=== PATIENT | male | born 1950 | race Two or more races ===

== ENCOUNTER 2020-10-05 11:15 | Inpatient (IN) | payer OTHER ==
[~2020-10-05] VITALS: Ht 170.2 cm; Wt 88.9 kg
[2020-10-05] MEDS ORDERED: AVALIDE 300-121 EACH PO (14:09)
[2020-10-05] MEDS ORDERED: TUJEO (14:09)
[2020-10-05] MEDS ORDERED: IBERSARTAN PO (14:10)
[2020-10-05] MEDS ORDERED: ZOCOR20 MG PO (14:11)
[2020-10-05] MEDS ORDERED: GLUCOTROL10 MG PO (14:11)
[2020-10-05] MEDS ORDERED: AVODART0.5 MG PO (14:11)
[2020-10-05] MEDS ORDERED: TRAZO PO (14:12)
[2020-10-12] MEDS ORDERED: COLACE100 MG PO (09:13)
[2020-10-12] MEDS ORDERED: DIAZEPAM10 MG PO (09:13)
[2020-10-12] MEDS ORDERED: NEURONTIN300 MG PO (09:13)
[2020-10-12] MEDS ORDERED: PERCOCET 5-3251 EACH PO (09:13)
[2020-10-12] MEDS ORDERED: MEDROLPACK PO (09:13)
[2020-10-12] MEDS ORDERED: AMOX-CLAV 875-1 EAC1 PO (09:13)
[2020-10-12] MEDS ORDERED: DIAZEPAM5 MG PO (09:51)
== END 2020-10-13 12:32 | disposition home or self-care (01) | DRG 455 ==
LOC: SURG 10-12 06:27 → O/R 10-12 06:27 → SURH 10-12 11:15 → SURG 10-12 11:59 → SURH 10-12 14:30 → SURG 10-13 12:32
PROVIDERS: ADMIT Orthopaedic Surgery Orthopaedic Surgery of the Spine; ATTEND Orthopaedic Surgery Orthopaedic Surgery of the Spine
PROC: 0SG00J1 Fusion of Lumbar Vertebral Joint with Synthetic Substitute, Posterior Approach, Posterior Column, Open Approach (ICD-10-PCS; 2020-10-12)
PROC: 07DR3ZZ Extraction of Iliac Bone Marrow, Percutaneous Approach (ICD-10-PCS; 2020-10-12)
PROC: XRGB0F3 Fusion of Lumbar Vertebral Joint using Radiolucent Porous Interbody Fusion Device, Open Approach, New Technology Group 3 (ICD-10-PCS; principal; 2020-10-12 14:30)
DX: M43.16 Spondylolisthesis, lumbar region (principal); M48.062 Spinal stenosis, lumbar region with neurogenic claudication; I10 Essential (primary) hypertension; E11.9 Type 2 diabetes mellitus without complications; Z79.84 Long term (current) use of oral hypoglycemic drugs

== ENCOUNTER 2023-06-09 07:00 | Inpatient (IN) | payer OTHER ==
[~2023-06-09] VITALS: Ht 170.2 cm; Wt 187.8 kg
[~2023-06-09 07:00] MED LIST: AMOX-CLAV 875-1 EAC1 PO; AVALIDE 300-121 EACH PO; AVODART0.5 MG PO; COLACE100 MG PO; DIAZEPAM10 MG PO; DIAZEPAM5 MG PO; GLUCOTROL10 MG PO; IBERSARTAN PO; MEDROLPACK PO; NEURONTIN300 MG PO; PERCOCET 5-3251 EACH PO; TRAZO PO; TUJEO; ZOCOR20 MG PO
[2023-06-09] MEDS ORDERED: METFORMIN (08:32)
[2023-06-09] MEDS ORDERED: [UNRECOGNIZED DRUG - OTHER] (08:33)
[2023-06-15] MEDS ORDERED: PERCOCET 5-3251 EACH PO (07:34)
[2023-06-15] MEDS ORDERED: MEDROLPACK PO (07:35)
[2023-06-15] MEDS ORDERED: COLACE100 MG PO (07:35)
== END 2023-06-16 12:54 | disposition home or self-care (01) | DRG 473 ==
LOC: EDSTATUS 07:00 → O/R 06-15 05:00 → EDSTATUS 06-15 07:00 → CIR.AMB 06-15 07:00 → SURG 06-15 07:00 → SURH 06-15 14:47 → SURG 06-15 15:00 → O/R 06-15 16:50 → SURG 06-15 19:31
PROVIDERS: ADMIT Orthopaedic Surgery Orthopaedic Surgery of the Spine; ATTEND Orthopaedic Surgery Orthopaedic Surgery of the Spine
PROC: 0RT30ZZ Resection of Cervical Vertebral Disc, Open Approach (ICD-10-PCS; 2023-06-15)
PROC: 07DS0ZZ Extraction of Vertebral Bone Marrow, Open Approach (ICD-10-PCS; 2023-06-15)
PROC: 4A11X4G Monitoring of Peripheral Nervous Electrical Activity, Intraoperative, External Approach (ICD-10-PCS; 2023-06-15)
PROC: 0RG20A0 Fusion of 2 or more Cervical Vertebral Joints with Interbody Fusion Device, Anterior Approach, Anterior Column, Open Approach (ICD-10-PCS; principal; 2023-06-15 07:00)
DX: M50.022 Cervical disc disorder at C5-C6 level with myelopathy (principal); M50.023 Cervical disc disorder at C6-C7 level with myelopathy

== ENCOUNTER 2024-06-12 09:30 | Inpatient (IN) | payer OTHER ==
[~2024-06-12] VITALS: Ht 170.2 cm; Wt 80.3 kg
[~2024-06-12 09:30] MED LIST changes: +METFORMIN; +[UNRECOGNIZED DRUG - OTHER]
[2024-06-18] MEDS ORDERED: AMOX-CLAV 875-1 EACH PO (13:00)
[2024-06-18] MEDS ORDERED: PERCOCET 5-3251 EACH PO (13:00)
[2024-06-18] MEDS ORDERED: COLACE100 MG PO (13:01)
[2024-06-18] MEDS ORDERED: ZOFRAN8 MG PO (13:01)
[2024-06-18] MEDS ORDERED: GABAPENTIN100 M2 PO (13:01)
[2024-06-18] MEDS ORDERED: MEDROLPACK PO (13:01)
[2024-06-18] MEDS ORDERED: NEURONTIN800 MG PO (13:02)
[2024-06-18] MEDS ORDERED: VANCOMYCIN HCL 1,000 MG VIAL ONE ×3 (15:04→19:30)
[2024-06-18] MEDS ORDERED: CEFAZOLIN SODIUM 1,000 MG VIAL ONE (15:04)
[2024-06-18] MEDS ORDERED: METHYLPREDNISOLONE SOD SUCC 125 MG VIAL ONE (15:04)
[2024-06-18] MEDS ORDERED: TRANEXAMIC ACID 100MG/1ML (1000MG) AMPUL IV ONE (15:04)
[2024-06-18] MEDS ORDERED: METHYLPREDNISOLONE ACETATE 80 MG/ML VIAL ONE (15:11)
[2024-06-18] MEDS ORDERED: IOVERSOL 320 MG/ML - 50 ML VIAL IV ONE (15:18)
[2024-06-18] MEDS ORDERED: PROMETHAZINE HCL 50 MG/ML AMPUL IM PRN (19:30)
[2024-06-18] MEDS ORDERED: 0.9 % SODIUM CHLORIDE 1,000 ML IV SCH (19:30)
[2024-06-18] MEDS ORDERED: ENALAPRILAT DIHYDRATE 1.25 MG/ML VIAL IV PRN (19:30)
[2024-06-18] MEDS ORDERED: MORPHINE SULFATE 4 MG/ML VIAL IV ONE (19:35)
[2024-06-18] MEDS ORDERED: VANCOMYCIN HCL 1,000 MG VIAL IV SCH (21:00)
[2024-06-18] MEDS ORDERED: MORPHINE SULFATE 4 MG,MORPHINE SULFATE 2 MG IV SCH (21:00)
[2024-06-18] MEDS ORDERED: GABAPENTIN 800 MG TABLET PO SCH (21:00)
[2024-06-18 22:24] VITALS: BP 148/88; O2SAT 97
[2024-06-18] MEDS ORDERED: INSULIN LISPRO 1,000 UNIT/10 ML UNITS SUBCUTANEO PRN (23:15)
[2024-06-18] MEDS ORDERED: DEXTROSE 50 % IN WATER 0.5 G/ML DISP.SYRIN IV PRN (23:15)
[2024-06-19] MEDS ORDERED: SODIUM CHLORIDE 0.45 % 1,000 ML IV SCH
[2024-06-19] MEDS ORDERED: ACETAMINOPHEN 500 MG GEL..CAP PO SCH
[2024-06-19 00:03] VITALS: BP 139/75; O2SAT 100
[2024-06-19] MEDS ORDERED: CEFAZOLIN SODIUM 1,000 MG in 0.9 % SODIUM CHLORIDE 50 ML IV SCH (01:00)
[2024-06-19] MEDS ORDERED: METHYLPREDNISOLONE SOD SUCC 125 MG VIAL IV SCH (01:00)
[2024-06-19 04:00] VITALS: BP 141/87; O2SAT 100
[2024-06-19] MEDS ORDERED: OxyCODONE HCL/APAP UD (PERCOCET) PO PRN (06:01)
[2024-06-19 06:46] LABS: HEMATOCRIT 44.1 % (39.0-48.0); MEAN CELL VOLUME 87.9 fL (80.0-100.00); MEAN CORPUSCULAR HEMOGLOBIN 29.9 pg (27.00-32.0); MEAN CORPUSCULAR HGB CONC 34.1 g/dl (32.0-36.0); PLATELET COUNT 224 K/uL (150-450); RED BLOOD COUNT 5.02 M/uL (4.00-6.00); RED CELL DISTRIBUTION WIDTH 13.1 % (11.5-14.5)
[2024-06-19 06:47] LABS: CALCIUM 9.3 mg/dL (8.5-10.1); CREATININE SERUM 1.19 mg/dL (0.70-1.30); GFR 59.92; POTASSIUM 4.21 mEq/L (3.5-5.1)
[2024-06-19 07:50] VITALS: BP 138/81; O2SAT 99
[2024-06-19] MEDS ORDERED: DOCUSATE SODIUM 100MG CAP PO SCH (09:00)
[2024-06-19] MEDS ORDERED: ENOXAPARIN SODIUM 40 MG/0.4 ML SYRINGE SUBCUTANEO SCH (09:00)
[2024-06-19] MEDS ORDERED: TAMSULOSIN HCL 0.4 MG CAP PO SCH (09:00)
[2024-06-19] MEDS ORDERED: MetFORMIN HCL 500 MG TABLET PO SCH (09:00)
[2024-06-19] MEDS ORDERED: FAMOtidine 20 MG TABLET PO SCH (09:00)
[2024-06-19 13:07] VITALS: BP 109/72; O2SAT 99
[2024-06-19 17:05] VITALS: BP 115/545; O2SAT 97
[2024-06-19 21:51] VITALS: BP 105/61; O2SAT 100
[2024-06-20] VITALS: BP 123/68; O2SAT 98
[2024-06-20 04:00] VITALS: BP 132/64; O2SAT 99
[2024-06-20 08:16] VITALS: BP 130/68; O2SAT 99
== END 2024-06-20 10:02 | disposition home or self-care (01) | DRG 402 ==
LOC: O/R 06-18 07:20 → SURH 06-18 09:30 → PED 06-18 19:06
PROVIDERS: ADMIT Orthopaedic Surgery Orthopaedic Surgery of the Spine; ATTEND Orthopaedic Surgery Orthopaedic Surgery of the Spine
PROC: 0SG3071 Fusion of Lumbosacral Joint with Autologous Tissue Substitute, Posterior Approach, Posterior Column, Open Approach (ICD-10-PCS; 2024-06-18)
PROC: 0ST40ZZ Resection of Lumbosacral Disc, Open Approach (ICD-10-PCS; 2024-06-18)
PROC: 0QB30ZZ Excision of Left Pelvic Bone, Open Approach (ICD-10-PCS; 2024-06-18)
PROC: 07DR0ZZ Extraction of Iliac Bone Marrow, Open Approach (ICD-10-PCS; 2024-06-18)
PROC: 4A1104G Monitoring of Peripheral Nervous Electrical Activity, Intraoperative, Open Approach (ICD-10-PCS; 2024-06-18)
PROC: 0SG30A0 Fusion of Lumbosacral Joint with Interbody Fusion Device, Anterior Approach, Anterior Column, Open Approach (ICD-10-PCS; principal; 2024-06-18 17:30)
DX: M51.27 Other intervertebral disc displacement, lumbosacral region (principal); M54.17 Radiculopathy, lumbosacral region; M51.370 Other intervertebral disc degeneration, lumbosacral region with discogenic back pain only